=== PATIENT | male | born 1970 | race Caucasian/White ===

== ENCOUNTER 2017-12-28 01:55 | Emergency (ER) | payer OTHER ==
[2017-12-28] MEDS ORDERED: BOOSTRIX IM ONE (07:45)
[2017-12-28] MEDS ORDERED: MOTRIN PO ONE (07:45)
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
[2017-12-28 09:26] VITALS: BP 155/108
== END 2017-12-28 09:26 | disposition home or self-care (01) ==
LOC: ED 01:55
DX: S41.112A Laceration without foreign body of left upper arm, initial encounter (principal); S00.81XA Abrasion of other part of head, initial encounter; Y08.89XA Assault by other specified means, initial encounter; Y93.89 Activity, other specified; Y92.89 Other specified places as the place of occurrence of the external cause; Y99.8 Other external cause status
CPT/HCPCS: 70450; 90471; 90715; 99283